=== PATIENT | male | born 1980 | race Caucasian/White ===

== ENCOUNTER 2022-09-01 14:30 | Observation (INO) ==
[2022-09-01 17:36] LABS: Potassium 4.3 mmol/L (3.5-5.1)
[2022-09-01 17:37] LABS: Albumin Globulin Ratio 1.5 (0.9-2); Albumin Level 4.3 gm/dl (3.4-5.0); Bilirubin,Total 0.9 mg/dl (0.2-1.0); Calcium 9.6 mg/dl (8.5-10.1); Creatinine Clr Calc Pharmacy 160.3 ml/min; Est GFR (African American) 118.5 ml/min; Est GFR (Non-African American) 102.2 ml/min; Globulin 2.8 gm/dl (2.5-4.0); Total Protein 7.1 gm/dl (6.0-8.3)
[2022-09-01] MEDS ORDERED: SODIUM CHLORIDE 0.9% 1000ML 1,000 ML IV ONE (17:55)
--- NOTE | 2022-09-01 17:57 | Emergency Department Note ---
Impression & Plan Acute cholecystitis, Cholelithiasis, Abdominal pain ED Provider Note NAME: SARMAD SHEETS AGE: 42 SEX: M : 1980 ARRIVES VIA: Walk-In INFORMANT: Patient ED PROVIDER(S): Jeevan Arora DO CHIEF COMPLAINT: abdominal pain HPI: Patient is a 42-year-old male who presents to the ER for right upper quadrant abdominal pain. This started last night around 10:00. Lasted to about 6:00 morning. It started an hour after eating. He has never had anything this severe before. Had a CT which was read initially as normal and over read with pericholecystic fluid and inflammation and consequently was called back. He notes his pain has abated but he has not eaten today as he is afraid of doing that. Denies any dysuria, urgency, or frequency. No other exacerbating or remitting factors. ROS: See above HPI for pertinent positives & negatives. A total of 10 systems reviewed and were otherwise negative. PAST MEDICAL HISTORY:See Below PAST SURGICAL HISTORY:See Below FAMILY HISTORY:See Below SOCIAL HISTORY:See Below HOME MEDICATIONS:See Below ALLERGIES:See Below VITALS:See Below PHYSICAL EXAMINATION: GENERAL: Sitting up in bed, alert, well appearing, well nourished, no distress, non-toxic EYE EXAM: normal conjunctiva. OROPHARYNX: mucous membranes are moist NECK: supple, no nuchal rigidity, no adenopathy, non-tender LUNGS: Clear to auscultation. Normal chest wall mechanics HEART: no murmurs, S1 normal and S2 normal ABDOMEN: abdomen soft, TTP in RUQ, normo-active bowel sounds, no masses, no rebound or guarding. UPPER EXTREMITIES: upper extremities are grossly normal. LOWER EXTREMITIES: No pitting edema. NEURO EXAM: Normal sensorium, cranial nerves II-XII grossly intact, normal speech, no gross weakness of arms, no gross weakness of legs. MEDICAL DECISION MAKING: Patient is a 42-year-old male who presents ER for right upper quadrant abdominal pain called back in following initial CT which was read as negative and reread/over read as possible acute cholecystitis. IV was established blood work was obtained. Labs show no significant leukocytosis or anemia. BMP along with LFTs bilirubin lipase was unremarkable. COVID was negative. Ultrasound shows acute cholecystitis. Discussed with Dr. Figueroa from general surgery who evaluate the patient to come to the OR. Patient was given IV cefoxitin and IV fluids. He was updated bedside. Triage Nursing notes reviewed. Limited review of prior medical records performed Vital Signs: reviewed and remarkable for HTN Differential diagnosis: Differential diagnoses includes but is not limited to gastritis, peptic ulcer disease, GERD, gallbladder disease, pancreatitis, small bowel obstruction, acute coronary syndrome, pericarditis, ischemic bowel, irritable bowel disease, irritable bowel syndrome, appendicitis, diverticulitis, malignancy, hernia, urinary tract infection, torsion, perforation, trauma, infectious. ER treatment provided: See below Diagnostics interpreted by me: ECG: none Cardiac Monitoring: An order was placed for continuous cardiac monitoring. The monitor shows a rate of 70 with sinus rhythm. Laboratory studies: As stated above and show below. Imaging studies: Ultrasound as described above Consultation(s): none Procedures: none Critical Care: None Past Med/Surg History Medical History Diabetes mellitus screening Dyslipidemia Eustachian tube disorder Moderate obstructive sleep apnea Surgical History History of tonsillectomy History of wisdom tooth extraction Family History Father Hypertension Grandfather (Maternal) Cancer brain cancer Grandmother (Paternal) Breast cancer Social History Smoking Status: Never smoker Second Hand Exposure: No; Hx Alcohol Use: Yes Alcohol type: beer, wine and hard liquor Hx Substance Use: No Preferred Language: [place] Communication Ability: Effective 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 marital status: Current Living Situation: Family Current Living Situation Comment: spouse and two children Feels Safe at Home: Yes Childhood Exposure to Second-Hand Smoke: No Seatbelt Use: always Sunscreen Use: Yes Allergies Allergies Allergy/AdvReac Type Severity Reaction Status Date / Time No Known Allergies Allergy Verified 09/01/22 20:51 Home Meds Home Medications Medication Instructions Recorded Confirmed omeprazole magnesium 20 mg 20 mg PO HS 09/01/22 09/01/22 tablet,delayed release (Prilosec OTC) Previous Rx's Medication Instructions Recorded Auto Titrating CPAP #1 ea 07/24/21 Results & Data (ED) Vital Signs Vital Signs - 24 hr 09/01/22 14:41 09/01/22 17:49 09/01/22 20:38 Temperature 36.9 C Temperature Source Oral Pulse Rate 99 H 72 Pulse Rate [Apical] 80 Respiratory Rate 18 18 18 Blood Pressure 143/94 H 139/83 Blood Pressure [Right Arm] 153/92 H Blood Pressure Mean 110 Blood Pressure Mean [Right Arm] 112 Pulse Oximetry 98 98 96 Oxygen Delivery Method Room Air Sepsis Recent Fever Within 48 Hours No Sepsis New/Unexplained Change in Mental Status No Sepsis Action Taken by Nursing No Action Required Laboratory Data Result diagrams: 09/01/22 19:21 09/01/22 16:28 Lab Results 09/01/22 09/01/22 09/01/22 Range/Units 16:28 16:28 17:08 WBC Cancelled RBC Cancelled Hgb Cancelled Hct Cancelled MCV Cancelled MCH Cancelled MCHC Cancelled RDW Std Deviation Cancelled RDW Coeff of Christopher Cancelled Plt Count Cancelled MPV Cancelled Immature Gran % (Auto) Cancelled Neut % (Auto) Cancelled Lymph % (Auto) Cancelled Victoria % (Auto) Cancelled Eos % (Auto) Cancelled Baso % (Auto) Cancelled Neut # (Auto) Cancelled Lymph # (Auto) Cancelled Victoria # (Auto) Cancelled Eos # (Auto) Cancelled Baso # (Auto) Cancelled Immature Gran # (Auto) Cancelled Absolute Nucleated RBC Cancelled Nucleated RBC % (auto) Cancelled Neutrophils % (Manual) Cancelled Band Neutrophils % Cancelled Lymphocytes % (Manual) Cancelled Prolymphocyte % Cancelled Reactive Lymphs % (Man) Cancelled Monocytes % (Manual) Cancelled Eosinophils % (Manual) Cancelled Basophils % (Manual) Cancelled Metamyelocytes % (Man) Cancelled Myelocytes % (Man) Cancelled Promyelocytes % (Man) Cancelled Blast Cells % (Manual) Cancelled Plasma Cell % (Manual) Cancelled Other Cells % Cancelled Nucleated RBC % Cancelled Neutrophils # (Manual) Cancelled Band Neutrophils # Cancelled Total Absolute Neuts Cancelled Lymphocytes # (Manual) Cancelled Prolymphocyte # Cancelled Reactive Lymphs # Cancelled Total Abs Lymphocytes Cancelled Monocytes # (Manual) Cancelled Eosinophils # (Manual) Cancelled Basophils # (Manual) Cancelled Metamyelocytes # (Man) Cancelled Myelocytes # (Manual) Cancelled Promyelocytes # (Man) Cancelled Blast Cells # (Man) Cancelled Plasma Cell # (Manual) Cancelled Other Cells # Cancelled Nucleated RBCs # (Man) Cancelled Hypersegmented Neuts Cancelled Hyposegmented Neuts Cancelled Hypogranular Neuts Cancelled Large Granular Lymphs Cancelled # Lrg Granular Lymphs Cancelled Hairy Cells Cancelled Smudge Cells Cancelled Toxic Granulation Cancelled Toxic Vacuolation Cancelled Dohle Bodies Cancelled Kenji Rods Cancelled Platelet Estimate Cancelled Hypogranular Platelets Cancelled Clumped Platelets Cancelled Giant Platelets Cancelled Platelet Satelliting Cancelled RBC Morphology Cancelled Polychromasia Cancelled Hypochromasia Cancelled Poikilocytosis Cancelled Basophilic Stippling Cancelled Anisocytosis Cancelled Microcytosis Cancelled Macrocytosis Cancelled Spherocytes Cancelled Pappenheimer Bodies Cancelled Sickle Cells Cancelled Target Cells Cancelled Tear Drop Cells Cancelled Ovalocytes Cancelled Stomatocytes Cancelled [place] Bodies Cancelled Echinocytes Cancelled Acanthocytes (Spur) Cancelled Rouleaux Cancelled RBC Agglutinates Cancelled Schistocytes Cancelled Sezary Cell Cancelled Sodium 138 (136-145) mmol/L Potassium 4.3 (3.5-5.1) mmol/L Chloride 106 (98-107) mmol/L Carbon Dioxide 25 (21-32) mmol/L Anion Gap 7 (3-11) BUN 12 (6-23) mg/dl Creatinine 0.92 (0.6-1.4) mg/dl Est Cr Clr Drug Dosing 160.3 ml/min Est GFR ( Amer) 118.5 ml/min Est GFR (Non-Af Amer) 102.2 ml/min BUN/Creatinine Ratio 13.0 (10-20) Glucose 98 (70-99(Fasting)) mg/dl Calcium 9.6 (8.5-10.1) mg/dl Total Bilirubin 0.9 (0.2-1.0) mg/dl AST 13 (13-39) U/L ALT 21 (7-52) U/L Alkaline Phosphatase 57 (34-104) U/L Total Protein 7.1 (6.0-8.3) gm/dl Albumin 4.3 (3.4-5.0) gm/dl Globulin 2.8 (2.5-4.0) gm/dl Albumin/Globulin Ratio 1.5 (0.9-2) Lipase 14 (11-82) U/L SARS-CoV-2, RNA, NAAT NEGATIVE (NEGATIVE) Blood Parasites ID Cancelled 09/01/22 Range/Units 19:21 WBC 8.42 RBC 5.14 Hgb 15.8 Hct 46.2 MCV 89.9 MCH 30.7 MCHC 34.2 RDW Std Deviation 40.2 RDW Coeff of Christopher 12.1 Plt Count 188 MPV 9.6 Immature Gran % (Auto) 0.4 Neut % (Auto) 71.7 Lymph % (Auto) 17.8 Victoria % (Auto) 8.9 Eos % (Auto) 0.8 Baso % (Auto) 0.4 Neut # (Auto) 6.04 Lymph # (Auto) 1.50 Victoria # (Auto) 0.75 Eos # (Auto) 0.07 Baso # (Auto) 0.03 Immature Gran # (Auto) 0.03 H Absolute Nucleated RBC Nucleated RBC % (auto) Neutrophils % (Manual) Band Neutrophils % Lymphocytes % (Manual) Prolymphocyte % Reactive Lymphs % (Man) Monocytes % (Manual) Eosinophils % (Manual) Basophils % (Manual) Metamyelocytes % (Man) Myelocytes % (Man) Promyelocytes % (Man) Blast Cells % (Manual) Plasma Cell % (Manual) Other Cells % Nucleated RBC % Neutrophils # (Manual) Band Neutrophils # Total Absolute Neuts Lymphocytes # (Manual) Prolymphocyte # Reactive Lymphs # Total Abs Lymphocytes Monocytes # (Manual) Eosinophils # (Manual) Basophils # (Manual) Metamyelocytes # (Man) Myelocytes # (Manual) Promyelocytes # (Man) Blast Cells # (Man) Plasma Cell # (Manual) Other Cells # Nucleated RBCs # (Man) Hypersegmented Neuts Hyposegmented Neuts Hypogranular Neuts Large Granular Lymphs # Lrg Granular Lymphs Hairy Cells Smudge Cells Toxic Granulation Toxic Vacuolation Dohle Bodies Kenji Rods Platelet Estimate Hypogranular Platelets Clumped Platelets Giant Platelets Platelet Satelliting RBC Morphology Polychromasia Hypochromasia Poikilocytosis Basophilic Stippling Anisocytosis Microcytosis Macrocytosis Spherocytes Pappenheimer Bodies Sickle Cells Target Cells Tear Drop Cells Ovalocytes Stomatocytes [place] Bodies Echinocytes Acanthocytes (Spur) Rouleaux RBC Agglutinates Schistocytes Sezary Cell Sodium (136-145) mmol/L Potassium (3.5-5.1) mmol/L Chloride (98-107) mmol/L Carbon Dioxide (21-32) mmol/L Anion Gap (3-11) BUN (6-23) mg/dl Creatinine (0.6-1.4) mg/dl Est Cr Clr Drug Dosing ml/min Est GFR ( Amer) ml/min Est GFR (Non-Af Amer) ml/min BUN/Creatinine Ratio (10-20) Glucose (70-99(Fasting)) mg/dl Calcium (8.5-10.1) mg/dl Total Bilirubin (0.2-1.0) mg/dl AST (13-39) U/L ALT (7-52) U/L Alkaline Phosphatase (34-104) U/L Total Protein (6.0-8.3) gm/dl Albumin (3.4-5.0) gm/dl Globulin (2.5-4.0) gm/dl Albumin/Globulin Ratio (0.9-2) Lipase (11-82) U/L SARS-CoV-2, RNA, NAAT (NEGATIVE) Blood Parasites ID Administered Medications Discontinued Medications Bupivacaine HCl/Epinephrine Bitart (Bupivacaine/Epinephrine 0.25% 1:200,000 30 Ml Vial) Confirm Administered Dose 30 ml .ROUTE .STK-MED ONE Stop: 09/01/22 21:28 Last Admin: 09/01/22 22:47 Dose: 12 ml Documented By: GARRET Sodium Chloride (Nss 1000ml) 1,000 mls @ 999 mls/hr IV .Q1H1M ONE Stop: 09/01/22 18:55 Last Infusion: 09/01/22 20:17 Dose: 0 mls/hr Documented By: Admin: 09/01/22 19:07 Dose: 999 mls/hr Documented By: NESTOR Cefoxitin Sodium (Mefoxin) 2,000 mg in 60 mls @ 100 mls/hr IV NOW STA Stop: 09/01/22 19:46 Last Infusion: 09/01/22 20:17 Dose: 0 mls/hr Documented By: Admin: 09/01/22 19:30 Dose: 100 mls/hr Documented By: NESTOR Imaging Data Radiologist's Impression: Gallbladder Ultrasound 10/31/22 16:32 US gallbladder CLINICAL HISTORY: eval cholecystitis TECHNIQUE: Multiple real-time sonographic images of the right upper quadrant were obtained. Comparison: Comparison is made to CT abdomen pelvis 01/10/2022 FINDINGS: The liver is diffusely echogenic in appearance with poor ultrasound penetration, with normal contour, which is consistent with fatty infiltration. No focal mass lesions are seen. No intrahepatic ductal dilatation is seen. A gallstone is seen with thickening of the gallbladder wall measuring up to 5 mm. A sonographic Park's sign was elicited by the business writer. The common duct measures 0.5 cm in diameter at the level of the hepatic artery. The visualized portions of the pancreas appear normal. The right kidney shows normal echogenicity, cortical thickness and renal co ntour. The right kidney shows no evidence of hydronephrosis or mass. No ascites or free fluid is seen in Ayers's pouch. IMPRESSION: 1. Cholelithiasis, gallbladder wall thickening and positive Park's sign compatible with acute cholecystitis. 2. Hepatic steatosis. ACT 112: Negative or not required by law. Electronically signed by: Rl Calle M.D. 09/01/2022 7:00 PM Discharge Plan Visit Data Chief Complaint: Abdominal Pain Stated Complaint: GALLBLADDER ATTACK ED Provider: Jeevan Arora Discharge Problem: Acute cholecystitis, Cholelithiasis, Abdominal pain Discharge Instructions Interventions: ED Discharge Assessment Last Done: 09/01/22 20:38
--- NOTE | 2022-09-01 19:02 | Ultrasound Report ---
US gallbladder CLINICAL HISTORY: eval cholecystitis TECHNIQUE: Multiple real-time sonographic images of the right upper quadrant were obtained. Comparison: Comparison is made to CT abdomen pelvis 01/10/2022 FINDINGS: The liver is diffusely echogenic in appearance with poor ultrasound penetration, with normal contour, which is consistent with fatty infiltration. No focal mass lesions are seen. No intrahepatic duct al dilatation is seen. A gallstone is seen with thickening of the gallbladder wall measuring up to 5 mm. A sonographic Park's sign was elicited by the umbrella tipper. The common duct measures 0.5 cm i n diameter at the level of the hepatic artery. The visualized portions of the pancreas appear normal . The right kidney shows normal echogenicity, cortical thickness and renal contour. The right kidney sh ows no evidence of hydronephrosis or mass. No ascites or free fluid is seen in Ayers's pouch. IMPRESSION: 1. Cholelithiasis, gallbladder wall thickening and positive Park's sign compatible with acute chol ecystitis. 2. Hepatic steatosis. ACT 112: Negative or not required by law. Electronically signed by: Rl Calle M.D. 09/01/2022 7:00 PM
[2022-09-01] MEDS ORDERED: cefOXitin 2,000 MG/60 ML BAG IV STA (19:11)
[2022-09-01 19:33] LABS: Basophils # (auto) 0.03 K/uL (0-0.2); Basophils % (auto) 0.4 %; Eosinophils # (auto) 0.07 K/uL (0-0.50); Eosinophils % (auto) 0.8 %; Hematocrit (blood only) 46.2 % (40.1-51.0); Hemoglobin 15.8 g/dl (14.0-18.0); Immature Granulocytes # (auto) 0.03 K/uL (0.00-0.02); Immature Granulocytes % (auto) 0.4 %; Lymphocytes % (auto) 17.8 %; Mean Corpuscular Hemoglobin 30.7 pg (25.0-34.0); Mean Corpuscular Hgb Conc 34.2 g/dL (32.0-36.0); Mean Corpuscular Volume 89.9 fL (80.0-100.0); Mean Platelet Volume 9.6 fL (9.4-12.4); Monocytes # (auto) 0.75 K/uL (0.24-0.82); Monocytes % (auto) 8.9 %; Neutrophils # (auto) 6.04 K/uL (1.4-6.5); Neutrophils % (auto) 71.7 %; Platelet Count 188 K/uL (130-400); RDW Coefficient of Variation 12.1 % (11.5-14.5); RDW Standard Deviation 40.2 fL (36.4-46.3); Red Blood Count 5.14 M/uL (4.63-6.08); White Blood Count 8.42 K/ul (4.8-10.8)
[2022-09-01] MEDS ORDERED: PROPOFOL IV EMULSION 10 MG/ML 20 ML VIAL IV ONE (20:18)
[2022-09-01] MEDS ORDERED: ROCURONIUM BROMIDE 10 MG/ML 5 ML VIAL IV ONE ×2 (20:18→22:00)
[2022-09-01] MEDS ORDERED: MIDAZOLAM HCL 1 MG/ML 2ML VIAL ONE (20:19)
[2022-09-01] MEDS ORDERED: fentaNYL citrate 100 MCG/2 ML VIAL ONE ×2 (20:19→21:36)
--- NOTE | 2022-09-01 20:19 | History & Physical Report ---
Date of Service September 01, 2022 Assessment & Plan (1) Acute cholecystitis: Plan 42-year-old gentleman with acute cholecystitis. I discussed the risks and benefits of laparoscopic, possible open cholecystectomy. We discussed the postoperative course and recovery. All his questions were answered, and he is agreeable to proceed. Consent has been obtained. We will take him to the operating room at the earliest convenience. History of Present Illness Primary Care Provider: Eriberto Gutierrez MD 42-year-old gentleman presents with severe right upper quadrant abdominal pain starting last night at 10 PM. It subsided around 6 AM this morning, however he still has tenderness in his right upper quadrant. He has not eaten since yesterday. He denies fevers or chills. He denies nausea or vomiting. The pain did start 1 hour after eating a hot dog. Ultrasound in the emergency department demonstrates gallbladder wall thickening and a 2.6 cm stone in the neck of the gallbladder as well as a positive Park sign. Allergies Allergy/AdvReac Type Severity Reaction Status Date / Time No Known Allergies Allergy Verified 04/08/22 11:08 Home Medications Medication Instructions Recorded Confirmed Type famotidine 20 mg tablet 20 mg PO DAILY #30 tabs 07/12/21 04/08/22 Rx Auto Titrating CPAP #1 ea 07/24/21 04/08/22 Rx dicyclomine 20 mg tablet 20 mg PO TID #14 tabs 09/01/22 Rx ondansetron 4 mg disintegrating 4 mg PO Q8H PRN nausea and 09/01/22 Rx tablet vomiting 5 days #14 tabs Past Med/Surg History Medical History Diabetes mellitus screening Dyslipidemia Eustachian tube disorder Moderate obstructive sleep apnea Surgical History History of tonsillectomy History of wisdom tooth extraction Family History Father Hypertension Grandfather (Maternal) Cancer brain cancer Grandmother (Paternal) Breast cancer Social History Smoking Status: Never smoker Second Hand Exposure: No; Hx Alcohol Use: Yes Alcohol type: beer, wine and hard liquor Hx Substance Use: No Preferred Language: Senegalese Communication Ability: Effective 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 marital status: Current Living Situation: Family Current Living Situation Comment: spouse and two children Feels Safe at Home: Yes Childhood Exposure to Second-Hand Smoke: No Seatbelt Use: always Sunscreen Use: Yes Review of Systems Review of Systems: All systems reviewed & are unremarkable except as noted in HPI & below Physical Exam Constitutional: WD/WN, vitals as above Eyes: PERRL, conjunctivae normal, anicteric sclerae Neck: trachea midline, no thyromegaly Respiratory: normal respiratory effort, lungs clear to auscultation Cardiovascular: RRR, no murmur, no edema Gastrointestinal (Abdomen): Inspection/Auscultation: abdomen normal to inspection; abdomen not distended Percussion/Palpation: + abdomen tender (Right upper quadrant) and abdomen soft; no guarding and abdomen not rigid Musculoskeletal: Extremities: no cyanosis and no clubbing Skin: no rashes, warm and dry Psychiatric: A+Ox3, euthymic affect Results & Data Results & Data ([facility]) Vital Signs (Past 12 Hours) Vital Signs Temp Pulse Pulse Resp BP BP Pulse Ox 09/01/22 17:49 80 18 153/92 H 98 09/01/22 14:41 36.9 C 99 H 18 143/94 H 98 O2 Del Method 09/01/22 17:49 09/01/22 14:41 Room Air Laboratory Results 09/01/22 09/01/22 09/01/22 Range/Units 19:21 17:08 16:28 WBC 8.42 RBC 5.14 Hgb 15.8 Hct 46.2 MCV 89.9 MCH 30.7 MCHC 34.2 RDW Std Deviation 40.2 RDW Coeff of Christopher 12.1 Plt Count 188 MPV 9.6 Immature Gran % (Auto) 0.4 Neut % (Auto) 71.7 Lymph % (Auto) 17.8 [place] % (Auto) 8.9 Eos % (Auto) 0.8 Baso % (Auto) 0.4 Neut # (Auto) 6.04 Lymph # (Auto) 1.50 [place] # (Auto) 0.75 Eos # (Auto) 0.07 Baso # (Auto) 0.03 Immature Gran # (Auto) 0.03 H Absolute Nucleated RBC Nucleated RBC % (auto) Neutrophils % (Manual) Band Neutrophils % Lymphocytes % (Manual) Prolymphocyte % Reactive Lymphs % (Man) Monocytes % (Manual) Eosinophils % (Manual) Basophils % (Manual) Metamyelocytes % (Man) Myelocytes % (Man) Promyelocytes % (Man) Blast Cells % (Manual) Plasma Cell % (Manual) Other Cells % Nucleated RBC % Neutrophils # (Manual) Band Neutrophils # Total Absolute Neuts Lymphocytes # (Manual) Prolymphocyte # Reactive Lymphs # Total Abs Lymphocytes Monocytes # (Manual) Eosinophils # (Manual) Basophils # (Manual) Metamyelocytes # (Man) Myelocytes # (Manual) Promyelocytes # (Man) Blast Cells # (Man) Plasma Cell # (Manual) Other Cells # Nucleated RBCs # (Man) Hypersegmented Neuts Hyposegmented Neuts Hypogranular Neuts Large Granular Lymphs # Lrg Granular Lymphs Hairy Cells Smudge Cells Toxic Granulation Toxic Vacuolation Dohle Bodies Kenji Rods Platelet Estimate Hypogranular Platelets Clumped Platelets Giant Platelets Platelet Satelliting RBC Morphology Polychromasia Hypochromasia Poikilocytosis Basophilic Stippling Anisocytosis Microcytosis Macrocytosis Spherocytes Pappenheimer Bodies Sickle Cells Target Cells Tear Drop Cells Ovalocytes Stomatocytes [place] Bodies Echinocytes Acanthocytes (Spur) Rouleaux RBC Agglutinates Schistocytes Sezary Cell Sodium 138 (136-145) mmol/L Potassium 4.3 (3.5-5.1) mmol/L Chloride 106 (98-107) mmol/L Carbon Dioxide 25 (21-32) mmol/L Anion Gap 7 (3-11) BUN 12 (6-23) mg/dl Creatinine 0.92 (0.6-1.4) mg/dl Est Cr Clr Drug Dosing 160.3 ml/min Est GFR ( Amer) 118.5 ml/min Est GFR (Non-Af Amer) 102.2 ml/min BUN/Creatinine Ratio 13.0 (10-20) Glucose 98 (70-99(Fasting)) mg/dl Calcium 9.6 (8.5-10.1) mg/dl Total Bilirubin 0.9 (0.2-1.0) mg/dl AST 13 (13-39) U/L ALT 21 (7-52) U/L Alkaline Phosphatase 57 (34-104) U/L Total Protein 7.1 (6.0-8.3) gm/dl Albumin 4.3 (3.4-5.0) gm/dl Globulin 2.8 (2.5-4.0) gm/dl Albumin/Globulin Ratio 1.5 (0.9-2) Lipase 14 (11-82) U/L SARS-CoV-2, RNA, NAAT NEGATIVE (NEGATIVE) Blood Parasites ID 09/01/22 Range/Units 16:28 WBC Cancelled RBC Cancelled Hgb Cancelled Hct Cancelled MCV Cancelled MCH Cancelled MCHC Cancelled RDW Std Deviation Cancelled RDW Coeff of Christopher Cancelled Plt Count Cancelled MPV Cancelled Immature Gran % (Auto) Cancelled Neut % (Auto) Cancelled Lymph % (Auto) Cancelled [place] % (Auto) Cancelled Eos % (Auto) Cancelled Baso % (Auto) Cancelled Neut # (Auto) Cancelled Lymph # (Auto) Cancelled [place] # (Auto) Cancelled Eos # (Auto) Cancelled Baso # (Auto) Cancelled Immature Gran # (Auto) Cancelled Absolute Nucleated RBC Cancelled Nucleated RBC % (auto) Cancelled Neutrophils % (Manual) Cancelled Band Neutrophils % Cancelled Lymphocytes % (Manual) Cancelled Prolymphocyte % Cancelled Reactive Lymphs % (Man) Cancelled Monocytes % (Manual) Cancelled Eosinophils % (Manual) Cancelled Basophils % (Manual) Cancelled Metamyelocytes % (Man) Cancelled Myelocytes % (Man) Cancelled Promyelocytes % (Man) Cancelled Blast Cells % (Manual) Cancelled Plasma Cell % (Manual) Cancelled Other Cells % Cancelled Nucleated RBC % Cancelled Neutrophils # (Manual) Cancelled Band Neutrophils # Cancelled Total Absolute Neuts Cancelled Lymphocytes # (Manual) Cancelled Prolymphocyte # Cancelled Reactive Lymphs # Cancelled Total Abs Lymphocytes Cancelled Monocytes # (Manual) Cancelled Eosinophils # (Manual) Cancelled Basophils # (Manual) Cancelled Metamyelocytes # (Man) Cancelled Myelocytes # (Manual) Cancelled Promyelocytes # (Man) Cancelled Blast Cells # (Man) Cancelled Plasma Cell # (Manual) Cancelled Other Cells # Cancelled Nucleated RBCs # (Man) Cancelled Hypersegmented Neuts Cancelled Hyposegmented Neuts Cancelled Hypogranular Neuts Cancelled Large Granular Lymphs Cancelled # Lrg Granular Lymphs Cancelled Hairy Cells Cancelled Smudge Cells Cancelled Toxic Granulation Cancelled Toxic Vacuolation Cancelled Dohle Bodies Cancelled Kenji Rods Cancelled Platelet Estimate Cancelled Hypogranular Platelets Cancelled Clumped Platelets Cancelled Giant Platelets Cancelled Platelet Satelliting Cancelled RBC Morphology Cancelled Polychromasia Cancelled Hypochromasia Cancelled Poikilocytosis Cancelled Basophilic Stippling Cancelled Anisocytosis Cancelled Microcytosis Cancelled Macrocytosis Cancelled Spherocytes Cancelled Pappenheimer Bodies Cancelled Sickle Cells Cancelled Target Cells Cancelled Tear Drop Cells Cancelled Ovalocytes Cancelled Stomatocytes Cancelled [place] Bodies Cancelled Echinocytes Cancelled Acanthocytes (Spur) Cancelled Rouleaux Cancelled RBC Agglutinates Cancelled Schistocytes Cancelled Sezary Cell Cancelled Sodium (136-145) mmol/L Potassium (3.5-5.1) mmol/L Chloride (98-107) mmol/L Carbon Dioxide (21-32) mmol/L Anion Gap (3-11) BUN (6-23) mg/dl Creatinine (0.6-1.4) mg/dl Est Cr Clr Drug Dosing ml/min Est GFR ( Amer) ml/min Est GFR (Non-Af Amer) ml/min BUN/Creatinine Ratio (10-20) Glucose (70-99(Fasting)) mg/dl Calcium (8.5-10.1) mg/dl Total Bilirubin (0.2-1.0) mg/dl AST (13-39) U/L ALT (7-52) U/L Alkaline Phosphatase (34-104) U/L Total Protein (6.0-8.3) gm/dl Albumin (3.4-5.0) gm/dl Globulin (2.5-4.0) gm/dl Albumin/Globulin Ratio (0.9-2) Lipase (11-82) U/L SARS-CoV-2, RNA, NAAT (NEGATIVE) Blood Parasites ID Cancelled Diagnostic Findings US gallbladder CLINICAL HISTORY: eval cholecystitis TECHNIQUE: Multiple real-time sonographic images of the right upper quadrant were obtained. Comparison: Comparison is made to CT abdomen pelvis 01/10/2022 FINDINGS: The liver is diffusely echogenic in appearance with poor ultrasound penetration, with normal contour, which is consistent with fatty infiltration. No focal mass lesions are seen. No intrahepatic ductal dilatation is seen. A gallstone is seen with thickening of the gallbladder wall measuring up to 5 mm. A sonographic Park's sign was elicited by the bottle caser. The common duct measures 0.5 cm in diameter at the level of the hepatic artery. The visualized portions of the pancreas appear normal. The right kidney shows normal echogenicity, cortical thickness and renal contour. The right kidney shows no evidence of hydronephrosis or mass. No ascites or free fluid is seen in Ayers's pouch. IMPRESSION: 1. Cholelithiasis, gallbladder wall thickening and positive Park's sign compatible with acute cholecystitis. 2. Hepatic steatosis.
[2022-09-01] MEDS ORDERED: fentaNYL citrate 100 MCG/2 ML VIAL IV PRN (21:06)
[2022-09-01] MEDS ORDERED: ePHEDrine sulfate 50 MG/ML AMP IV PRN (21:06)
[2022-09-01] MEDS ORDERED: HYDROmorphone INJ 2 MG/ML SYR/VIAL IV PRN (21:06)
[2022-09-01] MEDS ORDERED: ONDANSETRON INJ 2 MG/ML 2 ML VIAL IV PRN (21:06)
[2022-09-01] MEDS ORDERED: ATROPINE SULFATE 0.1 MG/ML 10ML SYR IV PRN (21:06)
--- NOTE | 2022-09-01 21:06 | Anesthesiology Consultation ---
Date of Service September 01, 2022 Assessment & Plan ASA ASA3 Proposed Anesthesia Anesthesia Type: General Risk / Benefits Reviewed With: PT / POA / Parent / Guardian, Accepts Plan and Informed Consent Obtained History Surgery Operation Date: 09/01/22 20:00 Proposed Procedures p Laparoscopic Cholecystectomy - Emanuel Figueroa MD Height/Weight Height: 6 ft 2 in Weight: 147.5 kg Allergies Allergy/AdvReac Type Severity Reaction Status Date / Time No Known Allergies Allergy Verified 09/01/22 20:51 Medications Home Medications Medication Instructions Recorded Confirmed Last Taken Auto Titrating CPAP #1 ea 07/24/21 04/08/22 Unknown omeprazole magnesium 20 mg 20 mg PO HS 09/01/22 09/01/22 Unknown tablet,delayed release (Prilosec OTC) NPO Date Last Intake of Fluids: 09/01/22 Time Last Intake of Fluids: 21:00 Date Last Intake of Solids: 08/31/22 Time Last Intake of Solids: 21:00 Past Medical History Medical History Diabetes mellitus screening Dyslipidemia Eustachian tube disorder Moderate obstructive sleep apnea Exercise / Class Metabolic Activity II 4-5 Yardwork/Stairs/Walk up hill Past Family History Family History Father Hypertension Grandfather (Maternal) Cancer brain cancer Grandmother (Paternal) Breast cancer Past Surgical History Surgical History History of tonsillectomy History of wisdom tooth extraction Past Anesthesia History No Hx of Anesthesia Complications and No Family Hx of Anesthesia Complications History of PONV No Hx of PONV and No Hx of Motion Sickness Social History Smoking Status: Never smoker Hx Alcohol Use: Yes Alcohol type: beer, wine and hard liquor Hx Substance Use: No Review of Systems denies fever/cough/ colds/ chest pain/ SOB/ MAO denies MAO Physical Exam Vital Signs Last Vital Signs Temp 36.9 C 09/01/22 14:41 Pulse 72 09/01/22 20:38 Resp 18 09/01/22 20:38 BP 139/83 09/01/22 20:38 Pulse Ox 96 09/01/22 20:38 O2 Del Method 09/01/22 14:41 ENMT Mouth: no TMJ abnormality and no dentition abnormality Thyromental Distance: > or= 3.5 Finger Breadths Mallampati Class: IV Neck + facial hair; neck extension not limited Respiratory normal respiratory effort; no respiratory distress Auscultation: lungs clear to auscultation bilaterally Cardiovascular Rate/Rhythm: regular rate and regular rhythm Neurologic moves all extremities Psychiatric Orientation: alert and oriented x 3 Testing Laboratory Results 09/01/22 19:21 09/01/22 16:28
[2022-09-01] MEDS ORDERED: BUPIVACAINE/EPINEPHRINE 0.25% 1:200,000 30 ML VIAL ONE (21:27)
[2022-09-01] MEDS ORDERED: DEXAMETHASONE SOD INJ 4 MG/ML VIAL ONE (21:43)
[2022-09-01] MEDS ORDERED: ONDANSETRON INJ 2 MG/ML 2 ML VIAL ONE (21:43)
[2022-09-01] MEDS ORDERED: KETOROLAC 30 MG/ML VIAL ONE (21:43)
[2022-09-01] MEDS ORDERED: NEOSTIGMINE METHYLSULFATE 1 MG/ML 10ML VIAL ONE (21:52)
[2022-09-01] MEDS ORDERED: GLYCOPYRROLATE 0.2 MG/ML VIAL ONE (21:52)
[2022-09-01] MEDS ORDERED: LABETALOL HCL IV 5 MG/ML 20ML IV ONE (21:55)
[2022-09-01] MEDS ORDERED: SUGAMMADEX SODIUM 200 MG/2 ML VIAL IV ONE (22:42)
--- NOTE | 2022-09-01 22:57 | Operative Report ---
Post Operative Report Pre & Post Diagnosis Operation Date: 09/01/22 20:00 Pre-Op Diagnosis: Acute cholecystitis Post-Op Diagnosis: Acute cholecystitis I identified the patient and participated in the time-out.: Yes Procedure Operation Date: 09/01/22 20:00 Actual Procedures p Laparoscopic Cholecystectomy(Not Applicable) - Emanuel Figueroa MD Surgeon Emanuel Figueroa MD Contingents Supervisor None Estimated Blood Loss 10 Findings Consistent with Post-Op Diagnosis Severe acute cholecystitis Specimens Gallbladder Drains None Anesthesia Type General Complications No immediate complications Description of Procedure The patient was taken to the operating room, and placed supine on the operating table. A timeout was performed, perioperative antibiotics were administered, SCD boots were placed. After adequate anesthesia and analgesia was obtained, the abdomen was prepped and draped in the normal sterile fashion. Local anesthetic was injected into and around the proposed incision sites. An incision was made with a 15 blade scalpel in the supraumbilical region and carried down to the level of the fascia. The fascia was grasped with a trach hook, and a varies needle was used to enter the abdominal cavity. The abdomen was insufflated to a pressure of 15 mmHg, and a 11 mm trocar was placed in this location. A 10 mm, 30 degree laparoscope was placed into the abdominal cavity, and the abdomen was surveyed. Two 5 mm trochars were placed along the right costal margin, and one 5 mm trocar was placed in the subxiphoid region under direct visualization. There was a significant inflammatory reaction with omentum densely adherent to the gallbladder. This was taken down with judicious use of electrocautery and blunt dissection with the suction firer tunnel kiln device. The gallbladder was grasped and retracted cephalad and laterally, exposing the triangle of Calot. Dissection began in the triangle with a combination of blunt dissection with the [place] dissector, and judicious use of the hook cautery. The cystic duct and cystic artery were dissected free circumferentially, and a critical view of safety was obtained. The cystic duct and cystic artery were clipped and transected, and the gallbladder was removed from the gallbladder fossa with the hook cautery. The camera was switched to a 5 mm, the gallbladder was placed in an Endo Catch bag, and removed via the supraumbilical port site. The camera was switched back to the 10 mm camera, and the abdomen was surveyed again. Hemostasis was checked and attended, and was excellent. The abdomen was copiously irrigated and suctioned free. Again hemostasis was checked and was excellent. All trochars were removed under direct visualization. The abdomen was desufflated. The fascia in the 11 mm port site was closed with a 0 Vicryl suture. The skin was closed with a running 4-0 Monocryl subcuticular stitch. Dermabond was applied. The patient tolerated the procedure without complication, and was transferred in stable condition to the PACU. All instrument, needle, and sponge counts were correct at the end of the case. I attest to the content of the Intraoperative Record and any orders documented therein. Any exceptions are noted below.
--- NOTE | 2022-09-01 23:23 | Anesthesiology Progress Note ---
Date of Service September 01, 2022 Anesthesia Post Procedure Vital Signs Vital Signs: Temp Pulse Pulse Resp BP BP Pulse Ox 09/01/22 23:10 36.9 C 77 12 142/85 H 93 09/01/22 23:05 36.8 C 81 18 141/86 H 93 09/01/22 20:38 72 18 139/83 96 09/01/22 17:49 80 18 153/92 H 98 09/01/22 14:41 36.9 C 99 H 18 143/94 H 98 O2 Del Method FiO2 09/01/22 23:10 Oxymask 2 09/01/22 23:05 Oxymask 2 09/01/22 20:38 09/01/22 17:49 09/01/22 14:41 Room Air Pain Intensity Medial Abdomen: Pain Intensity: 0 Transfer of Care Handoff Completed per policy Notes Mental Status: alert / awake / arousable and participated in evaluation Patient Amnestic to Procedure: Yes Nausea / Vomiting: adequately controlled Pain: adequately controlled Airway Patency, RR, SpO2: stable & adequate BP & HR: stable & adequate Hydration State: stable & adequate Anesthetic Complications: no major complications apparent and Pt Satisfied with anesthetic care
[2022-09-02] MEDS ORDERED: oxyCODONE/ACETAMINOPHEN 5mg/325mg TAB PO PRN (00:42)
[2022-09-02] MEDS ORDERED: diphenhydrAMINE Capsule 25 MG CAP PO PRN (00:42)
[2022-09-02] MEDS ORDERED: MoRPHine SULFATE 2 MG/ML CARP IV PRN (00:42)
[2022-09-02] MEDS ORDERED: KETOROLAC 30 MG/ML VIAL IV PRN (00:42)
[2022-09-02] MEDS ORDERED: ONDANSETRON INJ 2 MG/ML 2 ML VIAL IV PRN (00:42)
[2022-09-02] MEDS ORDERED: PIPERACILLIN/TAZOBACTAM 4.5 GM in DEXTROSE 5% 100 ML IV ONE (01:12)
[2022-09-02] MEDS ORDERED: ENOXAPARIN INJ 40 MG/0.4 ML SYR SQ SCH (08:00)
[2022-09-02] MEDS ORDERED: PIPERACILLIN/TAZOBACTAM 4.5 GM in DEXTROSE 5% 100 ML IV SCH (08:00)
--- NOTE | 2022-09-02 10:03 | Discharge Summary ---
Date of Service September 02, 2022 Admission HPI Per Admitting Provider 42-year-old gentleman presents with severe right upper quadrant abdominal pain starting last night at 10 PM. It subsided around 6 AM this morning, however he still has tenderness in his right upper quadrant. He has not eaten since yesterday. He denies fevers or chills. He denies nausea or vomiting. The pain did start 1 hour after eating a hot dog. Ultrasound in the emergency department demonstrates gallbladder wall thickening and a 2.6 cm stone in the neck of the gallbladder as well as a positive Park sign. Principal Diagnosis Acute calculous cholecystitis. Discharge Exam Constitutional WD/WN, vitals as above + obese, cooperative and comfortable; no acute distress and not ill appearing Respiratory normal respiratory effort, lungs clear to auscultation Cardiovascular RRR, no murmur, no edema Gastrointestinal (Abdomen) Inspection/Auscultation: abdomen normal to inspection, + abdominal surgical incision (clean/dry/intact with Dermabond in place) and + hypoactive bowel sounds; abdomen not distended and + abnormal bowel sounds Percussion/Palpation: + abdomen tender (at incision sites appropriate postop) and abdomen soft; no guarding, abdomen not rigid and abdomen not firm Skin no rashes, warm and dry no jaundice Psychiatric A+Ox3, euthymic affect Discharge Data Allergies Allergy/AdvReac Type Severity Reaction Status Date / Time No Known Allergies Allergy Verified 09/01/22 20:51 Consultations 09/01/22 19:11 ED Decision to Admit Stat Procedures Performed Operation Date: 09/01/22 20:00 Actual Procedures p Laparoscopic Cholecystectomy(Not Applicable) - Emanuel Figueroa MD Ordered Studies 09/01/22 16:32 US gallbladder Stat Hospital Course (1) Acute cholecystitis: Plan Patient taken to operating room for laparoscopic cholecystectomy by Dr. Figueroa. Patient found to have severe acute cholecystitis. Patient tolerated procedure well and was transferred to recovery then to medical/surgical floor for postop care. Diet was advanced as tolerated, activity as tolerated, IV Zosyn continued, IV fluids at 100 cc/hr, and PO Percocet and IV Morphine as needed for pain. POD # 1 patient evaluated, afebrile, vss, postop pain minimal and not requiring any pain medication. Preoperative pain resolved. Regular diet tolerated, urinating without difficulty. Patient was discharged home on POD # 1 in afternoon after IV Zosyn dose completed. Total Time Total Time Spent Total Time Spent (In Minutes): 20 minutes Total Time Includes: Examination of the Patient, Discharge Planning and Medication Reconciliation Discharge Plan Discharge Items Patient Disposition: Home - Self-Care Reason For Visit: POST-OP LAP CHOLECYSTECTOMY Discharge Diagnosis: Acute cholecystitis (acute inflammation of gallbladder) Activity: Per Instructions section Non-emergency contact: Primary Care Provider and Surgeon Call non-emergency contact if: you have any medication questions, your pain is worsening, your pain is concerning for you, you have a fever, your temperature is above 101, your wound has increased redness, your wound has increased drainage and your wound pain has increased Follow-up/Referrals: Emanuel Figueroa MD [Physician] - (Follow-up Dr. Figueroa or Ree Mckay in 2 weeks) Eriberto Gutierrez MD [Primary Care Provider] - Diet: Regular Addtl Attending Provider Instructions: Post-Surgical ~Discharge Instructions Activity Recommendations: - lifting limitation: (20 pounds for 3 weeks), - exercise/sex/sports limit: (nonstrenuous for 2 weeks), - driving or machine use limit: (none for 1 week), - Shower/bathe limit: (may shower beginning tomorrow) Diet: - Resume previous diet SPECIAL CARE INSTRUCTIONS: - May shower. Let water run over area and pat dry. Do not submerge incisions underwater for 2 weeks - Leave Dermabond surgical glue in place. This will fall off on its own. - Call the surgeon's office with any questions or concerns - - (ex. temperature higher than 101 degrees F, excessive bleeding or pain). MEDICATIONS: - Resume previous medications unless instructed otherwise by your surgeon. - May alternate extra strength Tylenol and Ibuprofen as needed for mild to moderate pain -650 mg Tylenol every 6 hours as needed - Ibuprofen 600 mg every 6 hours as needed (take with food) - Percocet 1 every 6 hours, as needed for moderate to severe pain - Recommend daily stool softener (Colace) while taking narcotic pain medication to prevent constipation or straining. Drink plenty of water daily. FOLLOW UP VISIT: - If not already scheduled, please call the office to schedule a two week follow-up appointment. Office number Pending Studies at Discharge: Yes (gallbladder pathology, will be reviewed at follow-up visit) Stand-Alone Forms: [facility], Smoking Cessation Medications and DC Order Prescriptions: New oxycodone-acetaminophen 5-325 mg tablet 1 tab PO Q6H PRN (Reason: pain) Qty: 5 0RF Continued (DME) Auto Titrating CPAP Misc See Rx Instructions .Route Qty: 1 0RF Rx Instructions: As directed, 4-20cm H2O omeprazole magnesium [Prilosec OTC] 20 mg Tablet,Delayed Release (Dr/Ec) 20 mg PO HS Discharge Orders: Discharge Order (Routine); Ordered 09/02/22 Ordered By: Ree Melvin Admission Data Admit Date/Time: 09/01/22 23:01 Attending Provider: Emanuel Figueroa Admit Provider: Emanuel Figueroa Primary Care Provider: Eriberto Gutierrez Other Providers: Emanuel Figueroa
[2022-09-02] MEDS ORDERED: ACETAMINOPHEN 325 MG TAB PO PRN (12:22)
== END 2022-09-02 13:51 | disposition home or self-care (01) ==
LOC: ED 14:30 → 3W 21:00 → OR 21:00